=== PATIENT | male | born 1955 | race Caucasian/White ===

== ENCOUNTER → 2021-05-02 | Outpatient (CLI) | payer MEDICARE, BC | LOC: COL.RAD 10:12 | DX: Z13.6 Encounter for screening for cardiovascular disorders (principal) ==

== ENCOUNTER 2023-03-13 07:12 | Day surgery (SDC) | payer MEDICARE, BC ==
[~2023-03-13] VITALS: Ht 177.8 cm; Wt 60.4 kg
[~2023-03-13 07:12] MED LIST: AMITRIPTYLINE H50 M1 PO; CENTRUM CHEWAB1 EAC3 PO; FOLIC ACID 11 MG/TA1 PO; NEURONTIN300 MG/CAP PO; NORVASC 10MG10 MG PO; ROXICODONE 55 MG/TAB PO; THIAMINE 1100 MG/TAB PO
[2023-03-13] MEDS ORDERED: LIPITOR 40MG TA40 MG PO (07:31)
[2023-03-13 07:38] VITALS: BP 164/86; PULSE 91; TEMP 98
[2023-03-13 09:50] VITALS: BP 178/99; PULSE 86; TEMP 98.1
[2023-03-13 10:05] VITALS: BP 182/90; PULSE 74
[2023-03-13 10:20] VITALS: BP 187/88; PULSE 74
--- NOTE | 2023-03-13 10:25 | NUR ---
0950 RETURNS TO ROOM 8 PER CART. AWAKE, ALERT, RESP UNLABORED. AMBULATES TO BATHROOM WITH STANDBY ASSIST. DENIES NAUSEA, ABD/CHEST PAIN OR DYSPHAGIA. VITAL SIGNS OBTAINED. CALL LIGHT AT SIDE 1000 DISCHARGE INSTRUCTIONS REVIEWED. PATIENT VERBALIZES UNDERSTANDING. COPY PROVIDED IN DISCHARGE FOLDER. TOLERATES PO SODA AND PUDDING WITHOUT NAUSEA, SWALLOWS WITHOUT DIFFICULTY 1005 DR. NARANJO HERE TO VISIT WITH PATIENT. SISTER IN ROOM 1017 DRESSES SELF
== END 2023-03-13 10:28 | disposition home or self-care (01) ==
LOC: SDCO 07:12
DX: Z12.11 Encounter for screening for malignant neoplasm of colon (principal); D12.3 Benign neoplasm of transverse colon; R63.4 Abnormal weight loss; K22.2 Esophageal obstruction; K21.00 Gastro-esophageal reflux disease with esophagitis, without bleeding; K29.30 Chronic superficial gastritis without bleeding; K22.70 Barrett's esophagus without dysplasia; F17.210 Nicotine dependence, cigarettes, uncomplicated
CPT/HCPCS: J2704; J7120

== ENCOUNTER → 2023-11-24 | Outpatient (CLI) | payer MEDICARE, BC ==
[~2023-11-24] MED LIST changes: +LIPITOR 40MG TA40 MG PO
== END ==
LOC: COL.RAD 09:53
DX: E04.2 Nontoxic multinodular goiter (principal)